=== PATIENT | female | born 1955 | race Hispanic/Latino ===

== ENCOUNTER 2018-10-10 11:14 | Emergency (ER) | payer OTHER ==
[2018-10-10 12:21] LABS: BASOPHILS % (AUTO) 0.7 % (0.0-5.0); EOSINOPHILS % (AUTO) 4.4 % (0.0-8.0); HEMATOCRIT 39.2 % (36-48); LYMPHOCYTES % (AUTO) 16.9 % (21.0-51.0); MEAN CORPUSCULAR HEMOGLOBIN 30.2 pg (27.0-33.0); MEAN CORPUSCULAR HGB CONC 33.6 g/dL (32.0-36.0); MEAN CORPUSCULAR VOLUME 89.7 fL (79-99); MONOCYTES % (AUTO) 5.6 % (3.0-13.0); NEUTROPHILS % (AUTO) 72.4 % (40.0-77.0); PLATELET COUNT (AUTO) 242 K/uL (130-400); RED BLOOD CELL COUNT(AUTO) 4.37 MIL/uL (4.00-5.50); RED CELL DISTRIBUTION WIDTH 13.1 % (11.0-15.5); WHITE BLOOD COUNT (AUTO) 7.1 K/uL (4.8-10.8)
[2018-10-10 12:31] LABS: CREATININE 0.7 mg/dL (0.5-1.5); POTASSIUM 4.1 mmol/L (3.5-5.1)
[2018-10-10 12:32] LABS: INR 1.01 (0.85-1.15); PROTHROMBIN TIME 10.6 SEC (9.6-11.6)
[2018-10-10 12:37] LABS: ALBUMIN 3.8 g/dL (3.5-5.0); BILIRUBIN,TOTAL 0.9 mg/dL (0.2-1.0); TOTAL PROTEIN, SERUM 8.4 g/dL (6.0-8.3)
[2018-10-10] MEDS ORDERED: TRAMADOL HCL 50 MG TABLET ONE (13:36)
[2018-10-10 13:45] LABS: APPEARANCE,URINE Clear (CLEAR); BILIRUBIN,URINE Negative (NEGATIVE); COLOR,URINE Yellow (YELLOW); GLUCOSE, URINE (UA) Negative (NEGATIVE); KETONES,URINE Negative (NEGATIVE); LEUKOCYTE ESTERASE ,URINE Trace (NEGATIVE); NITRATE,URINE Negative (NEGATIVE); OCCULT BLOOD,URINE Negative (NEGATIVE); PROTEIN,URINE Negative (NEGATIVE); UROBILINOGEN,URINE 0.2 mg/dL (0.2-1.0)
[2018-10-10 14:11] LABS: BACTERIA,URINE Few /HPF (None Seen); RBC,URINE None Seen /HPF (0-1)
== END 2018-10-10 16:13 | disposition home or self-care (01) ==
LOC: EDH 11:14
DX: R07.89 Other chest pain (principal); R09.1 Pleurisy; E07.9 Disorder of thyroid, unspecified; Z98.51 Tubal ligation status
CPT/HCPCS: 36415; 71101; 80053; 81001; 82150; 82550; 83690; 84484; 85025; 85610; 85730; 93005

== ENCOUNTER → 2022-05-07 | Outpatient (CLI) | payer OTHER | END | disposition home or self-care (01) | LOC: RAH 13:59 | PROVIDERS: ATTEND Internal Medicine | DX: J84.9 Interstitial pulmonary disease, unspecified (principal); R05.9 Cough, unspecified | CPT/HCPCS: 71046 ==

== ENCOUNTER → 2022-06-04 | Outpatient (CLI) | payer OTHER ==
[~2022-06-04] MED LIST: ALBUTEROL 0.083% 2.5 MG/3 ML INH IH ONE
== END | disposition home or self-care (01) ==
LOC: RESP 10:29
PROVIDERS: ATTEND Internal Medicine
DX: J98.8 Other specified respiratory disorders (principal); R55 Syncope and collapse; Z86.16 Personal history of COVID-19
CPT/HCPCS: 94060; 94727; 94729

== ENCOUNTER → 2022-09-29 | Outpatient (CLI) | payer OTHER | END | disposition home or self-care (01) | LOC: RAH 08:58 | PROVIDERS: ATTEND Internal Medicine | DX: M17.12 Unilateral primary osteoarthritis, left knee (principal) | CPT/HCPCS: 73562 ==

== ENCOUNTER 2024-05-09 23:00 | Emergency (ER) | payer OTHER ==
[~2024-05-09] VITALS: Ht 160 cm; Wt 62.1 kg
[2024-05-09 23:03] VITALS: TEMP 97.4
--- NOTE | 2024-05-10 00:11 | ERN ---
General Chief Complaint: Low Back Pain/Injury Stated Complaint: C/O LOWER BACK PAIN AFTER FALL A WK AGO Time Seen by MD: 23:45 History of Present Illness Initial Comments Healthy 68-year-old female presents for lower back pain and right hip pain after a fall about a week heal. Patient reports she fell onto her butt about a week ago. Since then she has had pain. She was ambulatory, neurovascularly intact, no neurologic compromise. No anesthesias. He has been taking Tylenol with the pain continues. Allergies: Coded Allergies: No Known Allergies (Unverified Allergy, Unknown, 05/09/24) Past Medical History Past Medical History: Hypothyroid, Other Medical History Other: MITRAL VALVE PROLAPSE Past Surgical History: Other Surgical History Other: TUBAL LIGATION ROS Dictation CONSTITUTIONAL: No chills, no fever, no weakness, no diaphoresis, no malaise. HEAD/FACE: No signs of trauma. EENT: No eye pain, no blurred vision, no tearing, no double vision, no ear pain, no ear discharge, no nose pain, no nasal congestion, no throat pain, no throat swelling, no mouth pain. RESPIRATORY: No cough, no orthopnea, no SOB, no stridor, no wheezing. CARDIOVASCULAR: No chest pain, no edema, no palpitations, no syncope. GASTROINTESTINAL/ABDOMINAL: No abdominal pain, no constipation, no diarrhea, no nausea, no vomiting. GENITOURINARY: No abnormal discharge, no dysuria, no frequent urination, no hematuria. No complaints of pain in the genitals. MUSCULOSKELETAL: Lower back bilateral hip pain INTEGUMENTARY: No change in color, no change in hair/nails, no dryness, no lesion, no lumps, no rash. NEUROLOGICAL/PSYCH: No anxiety, not depressed, no emotional problem, no headache, no numbness, no pre-existing deficit, no history of seizures, no tremors, no weakness. HEMATOLOGIC/LYMPHATIC: Not anemic, no history of blood clots, no apparent bleeding, no bruising, glands not swollen. All Systems Negative, Except as Noted. Physical Exam Physical Exam Dictation VITAL SIGNS: Reviewed. GENERAL APPEARANCE: Alert, oriented x3, no acute distress HEAD AND FACE: Non-traumatic. EYES: PERRL, pink conjunctivas, eyelid no trauma, anterior chamber clear. EARS: Pinnas intact and no signs of trauma or erythema. Ear canals clear and no discharge. TMs no erythema. NOSE: No discharge, no bleeding. OROPHARYNX: Mouth normal, teeth no caries, tongue pink. Pharynx clear, no e rythema. Tonsils no exudates, no abscesses noted. Mucous membrane moist. NECK: Supple, non-tender, no thyromegaly, no masses, no JVD, no bruits. BREAST: Deferred. CHEST: No tenderness, no crepitus, no paradoxical movement, no retractions. LUNGS: Clear, well-ventilated, symmetric, no rales, no wheezing, no rhonchi, no stridor, good breath sounds bilaterally. HEART: Regular rate, regular rhythm, no murmur, no gallops. VASCULAR: No peripheral edema. ABDOMEN: Soft, positive bowel sounds, nondistended, no guarding, nontender, no rebound, no masses no hepatomegaly, no splenomegaly, no Canchola's sign, no hernias. RECTAL: Deferred. GENITAL: Deferred. NEUROLOGICAL: Normal speech, gross motor function intact, gross sensory function intact. MUSCULOSKELETAL: Neck nontender, full range of motion, back nontender, full range of motion. EXTREMITIES: Nontender, full range of motion. SKIN: Color pink, dry, no turgor, no rash, no lacerations, no abrasions, no contusions. LYMPHATICS: Deferred. MDM CC: Hip pain status post fall lumbar pain Historian: Patient Comorbidities: None Limitations by social determinants of health: None Differential diagnosis: Fracture, musculoskeletal type pain There is no red flags or back pain The lumbar spine x-ray per might have been interpretation shows no fractures or abnormalities Pelvis x-ray per my independent interpretation shows no fractures or abnormalities I did offer the patient pain medicine, she declines at this time. We will give a prescription for meloxicam and recommend PCP follow up. Patient agrees with the plan. ED Course Orders Procedure Category Date Status Time Pelvis 1-2vws RAD 05/10/24 Taken 00:04 Lumbar Spine 2-3vws RAD 05/10/24 Taken 00:04 Vital Signs Date Time Temp Pulse Resp B/P (MAP) Pulse Ox O2 Delivery O2 Flow Rate FiO2 05/09/24 23:03 97.3 71 20 170/83 96 Room Air DX & DISP Disposition: Discharge Departure Impression: Primary Impression: Hip pain Additional Impression: Lower back pain Condition: Stable Scripts Meloxicam (Meloxicam) 15 Mg Tablet 15 MG PO DAILY PRN for PAIN for 10 Days, #10 TAB Prov: NEELA RÍOS DO 05/10/24 Additional Instructions: The x-rays do not show any fractures or abnormalities. Your symptoms are consistent with soft tissue injury. I have prescribed meloxicam, which is an anti-inflammatory pain medication. Please use as needed. You can also take 1000 mg of [id number] Tylenol as needed. Consider using an ohqq-vnm-xsuaiok patch such as lidocaine patches or Salonpas. Please follow up with your doctor next week if you continue with symptoms. Return to the emergency department as needed. Referrals: UZIEL KEITH MD (PCP) NEELA RÍOS DO May 10, 2024 00:11
[2024-05-10] MEDS ORDERED: MELO-108 PO (00:57)
[2024-05-10 01:16] VITALS: BP 137/81; PULSE 78; RESP 18; O2SAT 99
--- NOTE | 2024-05-10 08:44 | HMCIMG ---
Lumbar spine 2 views Comparison Study: none History: hip pain s/p fall Findings: Exam of the lumbosacral spine demonstrates no evidence of fracture or subluxation. There are mild spondylitic changes. The facet joints show minimal degenerative changes. The alignment of the spine is normal. The disc spaces are intact. Bone mineralization is normal. Impression: Spondylitic changes and degenerative changes of the apophyseal joints as noted.
--- NOTE | 2024-05-10 08:44 | HMCIMG ---
Exam Type: PELVIS 1-2VWS Clinical Information: hip pain s/p fall Comparison: None Findings: The bone examination is unremarkable. No fractures or dislocations are seen. No radiopaque foreign bodies are noted. Soft tissues are preserved. IMPRESSION: Normal examination.
== END 2024-05-10 01:17 | disposition home or self-care (01) ==
LOC: EDH 23:00
DX: M25.551 Pain in right hip (principal); M54.50 Low back pain, unspecified; E03.9 Hypothyroidism, unspecified; Z98.51 Tubal ligation status
CPT/HCPCS: 72100; 72170; 99284

== ENCOUNTER 2024-06-05 14:26 | Emergency (ER) | payer OTHER ==
[~2024-06-05] VITALS: Ht 160 cm; Wt 59.9 kg
[~2024-06-05 14:26] MED LIST changes: -ALBUTEROL 0.083% 2.5 MG/3 ML INH IH ONE; +MELO-108 PO
[2024-06-05] MEDS: 0.9%NACL 1000ML 1,000 ML IV STA (15:16)
[2024-06-05] MEDS: ondanSETRON 4MG INJ IVP STA (15:16)
[2024-06-05] MEDS: mecliZINE HCL 25 MG TABLET PO STA (15:16)
--- NOTE | 2024-06-05 15:18 | HMCIMG ---
CT HEAD/BRAIN W/O CONTRAST CLINICAL HISTORY: dizziness.n/v COMPARISON: None TECHNIQUE: Multiple sequential axial images of the head were obtained from the base of the skull through vertex. CT was performed with one or more of the following dose reduction techniques: automated exposure control, adjustment of the mA and/or kV according to patient size, or use of iterative reconstruction technique FINDINGS: The brain parenchyma and CSF spaces are unremarkable. The orbital contents, paranasal sinuses and mastoid air cells are within normal limits. The calvarium is intact. IMPRESSION: Normal study
[2024-06-05 15:19] LABS: BASOPHILS # (AUTO) 0.02 K/uL (0.00-0.20); BASOPHILS % (AUTO) 0.3 % (0.0-5.0); EOSINOPHILS # (AUTO) 0.04 K/uL (0.00-0.70); EOSINOPHILS % (AUTO) 0.5 % (0.0-8.0); HEMATOCRIT 41.6 % (36-48); IMMATURE GRANULOCYTE ABSOLUTE 0.02 K/uL (0-1); LYMPHOCYTES # (AUTO) 1.5 K/uL (1.0-4.8); LYMPHOCYTES % (AUTO) 20.5 % (21.0-51.0); MEAN CORPUSCULAR HEMOGLOBIN 30.3 pg (27.0-33.0); MEAN CORPUSCULAR HGB CONC 33.4 g/dL (32.0-36.0); MEAN CORPUSCULAR VOLUME 90.6 fL (79-99); MONOCYTES # (AUTO) 0.3 K/uL (0.1-1.0); MONOCYTES % (AUTO) 3.6 % (3.0-13.0); NEUTROPHILS # (AUTO) 5.5 K/uL (1.8-7.7); NEUTROPHILS % (AUTO) 74.8 % (40.0-77.0); PLATELET COUNT (AUTO) 242 K/uL (130-400); RED BLOOD CELL COUNT(AUTO) 4.59 MIL/uL (4.00-5.50); RED CELL DISTRIBUTION WIDTH 12.3 % (11.0-15.5); WHITE BLOOD COUNT (AUTO) 7.4 K/uL (4.8-10.8)
[2024-06-05 15:27] LABS: CREATININE 0.7 mg/dL (0.5-1.0); POTASSIUM 3.7 mmol/L (3.5-5.1)
--- NOTE | 2024-06-05 15:38 | HMCIMG ---
CHEST 1VW CLINICAL HISTORY: cp COMPARISON: 05/07/2022 TECHNIQUE: Single view of the chest was obtained. FINDINGS: Lungs are clear. The cardiac size and mediastinum are unremarkable. The bony structures are within normal limits. IMPRESSION: No acute cardiopulmonary process identified.
[2024-06-05 17:09] LABS: APPEARANCE,URINE CLEAR (CLEAR); BILIRUBIN,URINE NEGATIVE (NEGATIVE); COLOR,URINE LIGHT-YELLOW (YELLOW); GLUCOSE, URINE (UA) NEGATIVE (NEGATIVE); KETONES,URINE NEGATIVE (NEGATIVE); LEUKOCYTE ESTERASE ,URINE NEGATIVE Leu/uL (NEGATIVE); NITRATE,URINE NEGATIVE (NEGATIVE); OCCULT BLOOD,URINE NEGATIVE (NEGATIVE); PROTEIN,URINE NEGATIVE (NEGATIVE); UROBILINOGEN,URINE 0.2 mg/dL (0.2-1.0)
[2024-06-05 17:10] LABS: ADD UA MICROSCOPIC NO
[2024-06-05] MEDS ORDERED: MECL-302 PO (18:08)
--- NOTE | 2024-06-05 18:13 | ERN ---
ED Note History of Present Illness Stated Complaint: DIZZY,NAUSEOUS Chief Complaint: Dizzy/Light Headed Time Seen by MD: 14:33 Time Seen by Midlevel: 14:36 Dictation: 68-year-old female coming in with complaints of dizziness the started when she woke up. Patient states she had one episode of vomiting. Patient states at this time she feels slightly better and wanted to be evaluated. Denies having any medical or surgical history. Denies being recently sick. Denies any chest pain or chest discomfort. Allergies: Coded Allergies: No Known Allergies (Unverified Allergy, Unknown, 05/09/24) Home Meds Active Scripts Meclizine HCl (Meclizine HCl) 25 Mg Tablet, 25 MG PO TID for vertigo, #30 TAB 0 Refills Prov:JULES WILSON PIERCING MILL OPERATOR 06/05/24 Meloxicam (Meloxicam) 15 Mg Tablet, 15 MG PO DAILY PRN for PAIN for 10 Days, #10 TAB Prov:NEELA RÍOS DO 05/10/24 Past Medical History Past Medical History: Heart Disease, Hypothyroid, Other Additional Past Medical Hx: MITRAL VALVE PROLAPSE Surgical History: Other, BTL Surgical History Other: TUBAL LIGATION Review of System Dictation Constitutional: Negative for fever,chills, and weight loss Eyes: Negative for injury, pain,redness, and discharge ENT: Negative for injury,pain or swelling Cardiovascular: Negative for chest pain, palpitations, and edema Respiratory: Negative for shortness of breath, cough, and wheezing, Abdomen/GI: Negative for abdominal pain, nausea, vomiting, diarrhea, and constipation Back: Negative for injury and pain : Negative for injury, bleeding and discharge MS/Extremity: Negative for injury and deformity Skin: Negative for rash, and discoloration Neuro: Negative for headache, weakness, numbness, tingling, and seizure , diz ziness Psych: Negative for suicide ideation, homicidal ideation, and hallucinations Review of Systems: was completed Initial Vital Sign VS Vital Signs Date Time Temp Pulse Resp B/P (MAP) Pulse Ox O2 Delivery O2 Flow Rate FiO2 06/05/24 14:27 97.9 79 16 148/80 98 Room Air 0 06/05/24 14:39 21 Physical Exam Dictation General: awake, alert, NAD Head/Face: Normocephalic, atraumatic Eyes: PERRL, EOMI, vision at baseline ENT: oral cavity clear, TMs clear, no signs of infection Neck: Trachea midline, supple, no nuchal rigidity Cardiovascular: RRR, normal S1/S2, No MRGs, no JVD Respiratory: CTAB, no respiratory distress, No rales or wheezes Abdomen: Soft, non-tender, non-distended, normal bowel sounds, no guarding or rebound. Skin: Warm, dry, normal turgor, no rash MS/Extremity: Pulses equal, no cyanosis, neurovascular intact, FROM Neuro: COAx4, GCS 15, strength 5/5, CN 2-12 intact, normal cerebellar exam, normal gait, Psych: Normal behavior, mood, and affect normal Results (Laboratory/Radiology) Laboratory/Radiology Laboratory Tests Test 06/05/24 15:12 06/05/24 16:57 White Blood Count 7.4 K/uL (4.8-10.8) Red Blood Count 4.59 MIL/uL (4.00-5.50) Hemoglobin 13.9 g/dL (12.0-16.0) Hematocrit 41.6 % (36-48) Mean Corpuscular Volume 90.6 fL (79-99) Mean Corpuscular Hemoglobin 30.3 pg (27.0-33.0) Mean Corpuscular Hemoglobin Concent 33.4 g/dL (32.0-36.0) Red Cell Distribution Width 12.3 % (11.0-15.5) Platelet Count 242 K/uL (130-400) Mean Platelet Volume 10.4 fL (7.5-10.5) Immature Granulocyte % (Auto) 0.3 % (0-1) Neutrophils (%) (Auto) 74.8 % (40.0-77.0) Lymphocytes (%) (Auto) 20.5 % (21.0-51.0) L Monocytes (%) (Auto) 3.6 % (3.0-13.0) Eosinophils (%) (Auto) 0.5 % (0.0-8.0) Basophils (%) (Auto) 0.3 % (0.0-5.0) Neutrophils # (Auto) 5.5 K/uL (1.8-7.7) Lymphocytes # (Auto) 1.5 K/uL (1.0-4.8) Monocytes # (Auto) 0.3 K/uL (0.1-1.0) Eosinophils # (Auto) 0.04 K/uL (0.00-0.70) Basophils # (Auto) 0.02 K/uL (0.00-0.20) Absolute Immature Granulocyte (auto 0.02 K/uL (0-1) Nucleated Red Blood Cells 0.0 % (0.0-0.19) Sodium Level 142 mmol/L (136-145) Potassium Level 3.7 mmol/L (3.5-5.1) Chloride Level 106 mmol/L (101-111) Carbon Dioxide Level 27 mmol/L (21-32) Blood Urea Nitrogen 13 mg/dL (7-18) Creatinine 0.7 mg/dL (0.5-1.0) Glomerular Filtration Rate Calc 95 mL/min (>90) Random Glucose 153 mg/dL (70-105) H Total Calcium 9.3 mg/dL (8.5-10.1) Troponin I High Sensitivity 5 ng/L (4-50) Urine Color LIGHT-YELLOW (YELLOW) Urine Appearance CLEAR (CLEAR) Urine pH 6.0 (5.0-8.0) Urine Specific [place] 1.013 (1.001-1.031) Urine Protein NEGATIVE mg/dL (NEGATIVE) Urine Glucose (UA) NEGATIVE mg/dL (NEGATIVE) Urine Ketones NEGATIVE mg/dL (NEGATIVE) Urine Occult Blood NEGATIVE (NEGATIVE) Urine Nitrate NEGATIVE (NEGATIVE) Urine Bilirubin NEGATIVE mg/dL (NEGATIVE) Urine Urobilinogen 0.2 mg/dL (0.2-1.0) Urine Leukocyte Esterase NEGATIVE Ariella/uL Labs Reviewed?: Yes EKG Comment: EKG shows sinus rhythm, at a rate of 60. No STEMI interpreted by ER MD X-RAY Comment: [place] [id number] [address] IMAGING REPORT Signed PATIENT: HERO BRODERICK MR#: [id number] : 1955 SEX: F AGE: 68 LOCATION: [facility] ORDER 47 STATUS: [facility] REPORT#: [id number] SERVICE 45 REASON: cp ORDERING PHYSICIAN: JULES WILOSN NP PROCEDURE: CXR1VW - CHEST 1VW CHEST 1VW CLINICAL HISTORY: cp COMPARISON: 05/07/2022 TECHNIQUE: Single view of the chest was obtained. FINDINGS: Lungs are clear. The cardiac size and mediastinum are unremarkable. The bony structures are within normal limits. IMPRESSION: No acute cardiopulmonary process identified. DICTATED BY: ILDEFONSO COVARRUBIAS DO DATE: 06/05/24 1534 ELECTRONICALLY SIGNED BY: ILDEFONSO COVARRUBIAS DO DATE: 06/05/[address] Scan Comment: [place] [id number] [place] [address] IMAGING REPORT Signed PATIENT: HERO BRODERICK MR#: [id number] : 1955 SEX: F AGE: 68 LOCATION: [facility] ORDER 47 STATUS: [facility] REPORT#: [id number] SERVICE 45 REASON: dizziness.n/v ORDERING PHYSICIAN: JULES WILSON NP PROCEDURE: HEAD WO - CT HEAD/BRAIN W/O CONTRAST CT HEAD/BRAIN W/O CONTRAST CLINICAL HISTORY: dizziness.n/v COMPARISON: None TECHNIQUE: Multiple sequential axial images of the head were obtained from the base of the skull through vertex. CT was performed with one or more of the following dose reduction techniques: automated exposure control, adjustment of the mA and/or kV according to patient size, or use of iterative reconstruction technique FINDINGS: The brain parenchyma and CSF spaces are unremarkable. The orbital contents, paranasal sinuses and mastoid air cells are within normal limits. The calvarium is intact. IMPRESSION: Normal study DICTATED BY: ILDEFONSO COVARRUBIAS DO DATE: 06/05/24 151 ELECTRONICALLY SIGNED BY: ILDEFONSO COVARRUBIAS DO DATE: 06/05/24 151 ED Course ED Course Orders Procedure Category Date Status Time Cbc With Differential LAB 06/05/24 Complete 14:46 Basic Metabolic Panel LAB 06/05/24 Complete 14:46 Urinalysis Profile LAB 06/05/24 Complete 14:46 12 Lead Ekg Tracing- EKG 06/05/24 Logged Technical 14:46 Troponin I High LAB 06/05/24 Complete Sensitivity 14:46 Chest 1vw RAD 06/05/24 Resulted 14:46 Ct Head/Brain W/O CT 06/05/24 Resulted Contrast 14:46 0.9%Nacl 1000ml (Ns PHA 06/05/24 Complete 1000ml) 14:46 Meclizine Hcl 25 Mg PHA 06/05/24 Complete (Antivert 25 Mg) 14:46 Ondansetron 4mg Inj PHA 06/05/24 Complete (Zofran 4mg Inj) 14:46 Current Medications Medications (Trade) Dose Ordered Sig/Adán Route PRN Reason Start Time Stop Time Status Last Admin Dose Admin Meclizine HCl (ANTIvert 25 mg) 25 mg ONCE STAT PO 06/05/24 14:46 06/05/24 14:48 DC 06/05/24 15:16 Ondansetron HCl (zoFRAN 4MG INJ) 4 mg ONCE STAT IVP 06/05/24 14:46 06/05/24 14:48 DC 06/05/24 15:16 Sodium Chloride 1,000 ml @ 1,000 mls/hr Q1H STAT IV 06/05/24 14:46 06/05/24 15:45 DC 06/05/24 15:16 Vital Signs Date Time Temp Pulse Resp B/P (MAP) Pulse Ox O2 Delivery O2 Flow Rate FiO2 06/05/24 17:53 74 16 123/78 96 Room Air* 0 06/05/24 16:31 78 18 122/71 97 Room Air* 0 06/05/24 15:29 98.1 81 16 122/67 98 Room Air* 0 06/05/24 14:39 98.8 84 12 124/62 98 Room Air* 0 06/05/24 14:27 97.9 79 16 148/80 98 Room Air 0 Medical Decision Making MDM MDM: 68-year-old female coming in with complaints of dizziness the started when she woke up. Patient states she had one episode of vomiting. Patient states at this time she feels slightly better and wanted to be evaluated. Denies having any medical or surgical history. Denies being recently sick. Denies any chest pain or chest discomfort. On physical exam patient has no neurological deficits, PERRLA, EOM, no numbness or tingling. After fluids and meclizine patient states he feels slightly better. Blood work is unremarkable, no evidence of urinary tract infection. We will discharge patient to follow up with PCP for further evaluation. We will give a prescription for meclizine to take for dizziness as needed. Educated on signs and symptoms of when to return back to the ER. Patient verbalized understanding, answered all questions. Rationale: Tests considered and ordered secondary to shared decision making include: labs, ECG and radiology Previous outside records reviewed: Old ER visits. Risk of complication and/or morbidity or mortality of patient management: None Medications-Per medication reconciliation Need for hospitalization: Patient does meet criteria for hospitalization. Need for emergency major/minor surgery: No There are no social concerns with this patient. Prescription drug management Prescriptions will include symptomatic care Patient's prior external medical records from other ER visits were reviewed by me as indicated. Prior testing and results from previous visits were reviewed. Prior tests were taken into account with medical decision making and resource utilization, independent historian/historians were used to obtain complete medical history. I independently interpreted the test that were performed, results were reviewed by me and considered findings on radiology if ordered. Medical management and examination interpretation discussions were had by me with other qualified healthcare professionals as indicated for the patient's care. NIH STROKE SCALE: NIH STROKE SCALE Response (Comments) Value Level of Consciousness Alert 0 Ask patient month and their age Answers both correct 0 Command to open eyes, make fist and let go Obeys both correct 0 Best gaze (horizontal eye movement) Normal 0 Visual Field Testing No Visual Field Loss 0 Facial Paresis Normal / Symmetrical 0 Motor Function - Left Arm Normal 0 Motor Function - Right Arm Normal 0 Motor Function - Left Leg Normal 0 Motor Function - Right Leg Normal 0 Limb Ataxia No Ataxia 0 Sensory-pin prick to arms, legs, trunk and face Normal 0 Best Language (describe picture, name items and read) No Aphasia 0 Dysarthria (read several words) Normal Articulation 0 Extinction and Inattention Normal 0 Total DX & DISP Disposition: Discharge Departure Impression: Primary Impression: Vertigo Condition: Stable Scripts Meclizine HCl (Meclizine HCl) 25 Mg Tablet 25 MG PO TID for vertigo, #30 TAB 0 Refills Prov: JULES WILSON PIERCING MILL OPERATOR 06/05/24 Additional Instructions: Please return to the ER if you have any worsening symptoms. Follow up with your PCP for further evaluation. Referrals: UZIEL KEITH MD (PCP) Time of Disposition: 18:12 I have reviewed the case, and I agree with, Diagnosis and Plan JULES WILSON NP Jun 05, 2024 18:13
[2024-06-05 18:40] VITALS: BP 128/69; PULSE 71; RESP 18; TEMP 98.7; O2SAT 97
--- NOTE | 2024-06-05 20:50 | EKG ---
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
== END 2024-06-05 18:42 | disposition home or self-care (01) ==
LOC: EDH 14:26
DX: R42 Dizziness and giddiness (principal); E03.9 Hypothyroidism, unspecified; Z98.51 Tubal ligation status
CPT/HCPCS: 99285; 96374; 70450; 96361; 71045; 84484; 80048; 85025; 81003; 36415; 93005; J7030; J2405